=== PATIENT | male | born 1990 | race Caucasian/White ===

== ENCOUNTER → 2018-11-10 11:07 | Outpatient (CLI) | payer OTHER, SELFPAY ==
[2018-11-10 12:16] LABS: Absolute Lymphocyte Count 1.33 X10^3/ul (0.83-4.51); Absolute Neutrophil Count 5.7 X10^3/uL (2.0-7.7); Basophil# 0.01 X10^3/uL; Basophil% 0.1 % (0-1); Eosinophil# 0.05 X10^3/uL; Eosinophils% 0.6 % (0-5); Hematocrit 42.3 % (40-54); Lymphocyte # 1.33 X10^3/ul (4.0); Mean Corp Hgb Conc 30.7 g/gl (32-36); Mean Corpuscular Hgb 24.3 pg (27.0-32.0); Mean Corpuscular Volume 79.2 fL (80-94); Mean Platelet Vol. 8.9 fl (6.2-12.0); Monocyte# 0.72 X10^3/uL; Monocyte% 9.2 % (0-10); Platelet Count 291 K/mm3 (150-450); RBC Distribution Width CV 14.6 % (11.6-14.6); RBC Distribution Width SD 42.3 fl (35.1-43.9); Red Blood Count 5.34 M/mm3 (4.6-6.2); White Blood Count 7.8 K/mm3 (4.4-11.0)
[2018-11-10 12:18] LABS: POSITIVE COUNT NO; POSITIVE DIFFERENTIAL NO; POSITIVE MORPHOLOGY NO
[2018-11-10 12:43] LABS: ALB/GLOB Ratio 0.7 RATIO (0.9-2.4); AST(SGOT) 11 U/L (15-37); Alanine Aminotransfer ALT/SGPT 19 U/L (16-61); Albumin, Serum 3.3 g/dL (3.2-5.0); Alkaline Phosphatase 74 U/L (45-117); Anion Gap 8 (5-15); BUN 11 mg/dL (7-18); BUN/Creat Ratio 12.1 RATIO (10-20); Calcium,Total 8.8 mg/dL (8.5-10.1); Chloride 102 mmol/L (98-107); Creatinine, Serum 0.91 mg/dL (0.70-1.30); EST Glomerular Filtration Rate 105 mL/min (>60); Est Glom Filt Rate - Afr Amer 127 mL/min (>60); Globulin 4.5 g/dL (2.2-4.2); Glucose 108 mg/dL (74-106); Potassium 3.5 mmol/L (3.5-5.1); Protein, Total 7.8 g/dL (6.4-8.2); Sodium Level 141 mmol/L (136-145)
== END ==
PROVIDERS: Family Provider Family Medicine; PCP Family Medicine; Referring Provider Family Medicine; Visit Provider Family Medicine
DX: R10.9 Unspecified abdominal pain (principal)
CPT/HCPCS: 36415; 80053; 85025

== ENCOUNTER → 2018-11-17 11:52 | Outpatient (CLI) | payer SELFPAY ==
--- NOTE | 2018-11-17 11:55 | CT_ITS ---
STUDY: CT ABDOMEN AND PELVIS WITH CONTRAST REASON FOR EXAM: Male, 28 years old. 9 day history of right lower quadrant pain and fatigue. History of Crohn's disease. Fever/chills. RADIATION DOSAGE (If Supplied By Facility): CTDIvol = ( 8.76 ) mGy, DLP = ( 531.02 ) mGycm TECHNIQUE: Transaxial images were obtained from the dome of the diaphragm to the symphysis pubis with oral contrast. Isovue 300 100 IV/Oral was administered. Sagittal and coronal images were reconstructed. Individualized dose optimization techniques were used for this CT. COMPARISON: None. FINDINGS: The visualized lung bases are unremarkable. The visualized portions of the heart are within normal limits. Normal liver. Normal gallbladder and extrahepatic biliary system. Normal spleen. Normal pancreas. Normal bilateral adrenal glands. Normal right kidney. Normal left kidney. There is a small hiatal hernia. There is a 10 cm segment of the distal ileum and terminal ileum with diffuse circumferential wall thickening and narrowing with increased markings in the surrounding mesenteric fat. This is in keeping with recurrent Crohn's disease. There is also evidence of multiple small mesenteric lymph nodes at that site in keeping with mesenteric lymphadenitis. Normal colon. The appendix is visualized and appears normal. Normal abdominal aorta. Normal inferior vena cava. Normal retroperitoneum. Normal urinary bladder. Normal abdominal wall. Normal osseous structures. CT/Abdomen/Pelvis WITH Contrast IMPRESSION: 10 cm segment of the diffuse circumferential wall thickening of the distal and terminal ileum with surrounding mesenteric adenitis and bowel wall thickening suggestive of recurrent Crohn's disease. Fecal material is seen in the colon. Electronically Signed: Uri Pierson, at 14:43 EDT , Service support ,
== END ==
PROVIDERS: Family Provider Family Medicine; PCP Family Medicine; Referring Provider Family Medicine; Visit Provider Family Medicine
DX: R10.31 Right lower quadrant pain (principal)
CPT/HCPCS: 74177; Q9967

== ENCOUNTER → 2018-11-19 13:42 | Outpatient (CLI) | payer OTHER, SELFPAY | PROVIDERS: Family Provider Family Medicine; PCP Family Medicine; Referring Provider Internal Medicine Gastroenterology; Visit Provider Internal Medicine Gastroenterology | DX: K50.80 Crohn's disease of both small and large intestine without complications (principal) | CPT/HCPCS: 36415 ==

== ENCOUNTER → 2018-12-09 12:13 | Outpatient (CLI) | payer OTHER, SELFPAY ==
[2018-12-09 13:26] LABS: Erythrocyte Sedimentation Rate 54 mm/hr (0-15)
[2018-12-09 13:30] LABS: Absolute Lymphocyte Count 1.01 X10^3/ul (0.83-4.51); Absolute Neutrophil Count 8.3 X10^3/uL (2.0-7.7); Basophil# 0.01 X10^3/uL; Basophil% 0.1 % (0-1); Eosinophil# 0.02 X10^3/uL; Eosinophils% 0.2 % (0-5); Hematocrit 41.1 % (40-54); Hemoglobin 12.9 g/dl (13.0-16.5); Lymphocyte # 1.01 X10^3/ul (4.0); Lymphocyte % 9.9 % (19-41); Mean Corp Hgb Conc 31.4 g/gl (32-36); Mean Corpuscular Hgb 23.6 pg (27.0-32.0); Mean Corpuscular Volume 75.3 fL (80-94); Mean Platelet Vol. 9.6 fl (6.2-12.0); Monocyte# 0.85 X10^3/uL; Monocyte% 8.4 % (0-10); Neutrophil # 8.25 X10^3/uL (2.7-7.7); Neutrophil % 81.2 % (47-70); Platelet Count 279 K/mm3 (150-450); RBC Distribution Width CV 14.6 % (11.6-14.6); RBC Distribution Width SD 39.6 fl (35.1-43.9); Red Blood Count 5.46 M/mm3 (4.6-6.2); White Blood Count 10.2 K/mm3 (4.4-11.0)
[2018-12-09 13:31] LABS: POSITIVE COUNT NO; POSITIVE DIFFERENTIAL NO; POSITIVE MORPHOLOGY NO
== END ==
PROVIDERS: Family Provider Family Medicine; PCP Family Medicine; Referring Provider Internal Medicine Gastroenterology; Visit Provider Internal Medicine Gastroenterology
DX: K50.90 Crohn's disease, unspecified, without complications (principal)
CPT/HCPCS: 36415; 85025; 85652; 86140

== ENCOUNTER → 2018-12-17 | Outpatient (CLI) | payer OTHER, SELFPAY ==
[2018-12-17 08:07] VITALS: BP 119/71; PULSE 86; RESP 16; TEMP 36.6; O2SAT 97; BMI 20.9
== END | disposition home or self-care (01) ==
LOC: MEDOUTP 07:55
PROVIDERS: Family Provider Family Medicine; PCP Family Medicine; Referring Provider Internal Medicine Gastroenterology; Visit Provider Internal Medicine Gastroenterology
DX: K50.90 Crohn's disease, unspecified, without complications (principal)
CPT/HCPCS: 96365; J7050; A4216; J3358

== ENCOUNTER → 2019-01-19 07:34 | Outpatient (CLI) | payer OTHER, SELFPAY ==
[2018-12-17 08:07] VITALS: BMI 20.9
[2019-01-19 10:20] LABS: Hematocrit 40.2 % (40-54); Hemoglobin 12.5 g/dl (13.0-16.5); Mean Corp Hgb Conc 31.1 g/gl (32-36); Mean Corpuscular Hgb 23.8 pg (27.0-32.0); Mean Corpuscular Volume 76.6 fL (80-94); Mean Platelet Vol. 8.8 fl (6.2-12.0); Platelet Count 381 K/mm3 (150-450); RBC Distribution Width CV 15.8 % (11.6-14.6); RBC Distribution Width SD 43.7 fl (35.1-43.9); Red Blood Count 5.25 M/mm3 (4.6-6.2); White Blood Count 10.1 K/mm3 (4.4-11.0)
[2019-01-19 10:25] LABS: Scan Indicated on CBC? Y/N NO
[2019-01-19 10:45] LABS: ALB/GLOB Ratio 0.8 RATIO (0.9-2.4); AST(SGOT) 13 U/L (15-37); Alanine Aminotransfer ALT/SGPT 33 U/L (16-61); Albumin, Serum 2.9 g/dL (3.2-5.0); Alkaline Phosphatase 61 U/L (45-117); Anion Gap 5 (5-15); BUN 9 mg/dL (7-18); BUN/Creat Ratio 8.8 RATIO (10-20); Calcium,Total 8.6 mg/dL (8.5-10.1); Chloride 104 mmol/L (98-107); Creatinine, Serum 1.02 mg/dL (0.70-1.30); EST Glomerular Filtration Rate 92 mL/min (>60); Est Glom Filt Rate - Afr Amer 112 mL/min (>60); Globulin 3.8 g/dL (2.2-4.2); Glucose 131 mg/dL (74-106); Potassium 3.2 mmol/L (3.5-5.1); Protein, Total 6.7 g/dL (6.4-8.2); Sodium Level 140 mmol/L (136-145)
== END ==
PROVIDERS: Family Provider Family Medicine; PCP Family Medicine; Referring Provider Internal Medicine Gastroenterology; Visit Provider Internal Medicine Gastroenterology
DX: K50.90 Crohn's disease, unspecified, without complications (principal)
CPT/HCPCS: 36415; 80053; 85027; 86140

== ENCOUNTER → 2019-01-21 | Outpatient (CLI) | payer OTHER, SELFPAY ==
[2018-12-17 08:07] VITALS: BMI 20.9
--- NOTE | 2019-01-21 14:48 | CT_ITS ---
STUDY: CT ABDOMEN AND PELVIS WITH CONTRAST REASON FOR EXAM: Male, 28 years old. Two-week history of right lower quadrant pain. History of Crohn's disease. RADIATION DOSAGE (If Supplied By Facility): CTDIvol = ( 14.35 ) mGy, DLP = ( 451.47 ) mGycm TECHNIQUE: Transaxial images were obtained from the dome of the diaphragm to the symphysis pubis with oral contrast. 100mL IV/Oral Isovue 300 was administered. Sagittal and coronal images were reconstructed. Individualized dose optimization techniques were used for this CT. COMPARISON: Comparison is made with prior examination dated November 17, 2018. FINDINGS: The visualized lung bases are unremarkable. The visualized portions of the heart are within normal limits. Normal liver. Normal gallbladder and extrahepatic biliary system. Normal spleen. Normal pancreas. Normal bilateral adrenal glands. Normal right kidney. Normal left kidney. There is a small hiatal hernia. Once again, there is an approximately 10 cm segment of distal ileum and terminal ileum with diffuse circumferential wall thickening and narrowing of the lumen. Increased markings are seen in the surrounding peritoneal fat as well as mesenteric adenitis. At this time however, there is evidence of a 3.2 cm x 4.3 cm cystic structure along the inferior anterior aspect of the inflammatory mass. This may represent either superimposed appendicitis versus progressive Crohn's disease. Normal colon. The appendix is visualized and appears normal. Normal abdominal aorta. Normal inferior vena cava. Normal retroperitoneum. Normal urinary bladder. Normal abdominal wall. Normal osseous structures. CT/Abdomen/Pelvis WITH Contrast IMPRESSION: Progressive thickening and cystic changes in the right lower quadrant at this level of the terminal ileum and distal ileum as well as the cecum and probable appendicitis. The results were communicated to the referring physician. Electronically Signed: Uri Pierson, at 8:07 EDT , Service support ,
== END | disposition home or self-care (01) ==
LOC: CT 14:46
PROVIDERS: Family Provider Family Medicine; PCP Family Medicine; Referring Provider Internal Medicine Gastroenterology; Visit Provider Internal Medicine Gastroenterology
DX: K50.90 Crohn's disease, unspecified, without complications (principal); R10.31 Right lower quadrant pain
CPT/HCPCS: 74177; Q9967; A4216

== ENCOUNTER 2019-01-24 09:58 | Emergency (ER) | payer OTHER, SELFPAY ==
[2018-12-17 08:07] VITALS: BMI 20.9
[2019-01-24 10:00] VITALS: BP 152/87; PULSE 111; RESP 16; TEMP 36.7; O2SAT 98; BMI 20.3
[2019-01-24 10:28] LABS: Absolute Lymphocyte Count 0.72 X10^3/ul (0.83-4.51); Absolute Neutrophil Count 7.2 X10^3/uL (2.0-7.7); Hematocrit 39.4 % (40-54); Hemoglobin 12.6 g/dl (13.0-16.5); Lymphocyte # 0.72 X10^3/ul (4.0); Lymphocyte % 8.1 % (19-41); Mean Corpuscular Hgb 24.5 pg (27.0-32.0); Mean Corpuscular Volume 76.7 fL (80-94); Mean Platelet Vol. 8.1 fl (6.2-12.0); Monocyte# 0.89 X10^3/uL; Monocyte% 10.1 % (0-10); Neutrophil # 7.23 X10^3/uL (2.7-7.7); Neutrophil % 81.7 % (47-70); Platelet Count 280 K/mm3 (150-450); RBC Distribution Width CV 15.6 % (11.6-14.6); RBC Distribution Width SD 43.6 fl (35.1-43.9); Red Blood Count 5.14 M/mm3 (4.6-6.2); White Blood Count 8.9 K/mm3 (4.4-11.0)
[2019-01-24 10:30] LABS: POSITIVE COUNT NO; POSITIVE DIFFERENTIAL NO; POSITIVE MORPHOLOGY NO
[2019-01-24 10:38] LABS: Anion Gap 4 (5-15); BUN 8 mg/dL (7-18); BUN/Creat Ratio 8.2 RATIO (10-20); Calcium,Total 8.5 mg/dL (8.5-10.1); Chloride 101 mmol/L (98-107); Creatinine, Serum 0.98 mg/dL (0.70-1.30); EST Glomerular Filtration Rate 97 mL/min (>60); Est Glom Filt Rate - Afr Amer 117 mL/min (>60); Glucose 119 mg/dL (74-106); Potassium 3.5 mmol/L (3.5-5.1); Sodium Level 139 mmol/L (136-145)
--- NOTE | 2019-01-24 10:52 | ED.VIS.GI ---
History of Present Illness Chief Complaint: Abd Pain Informant: Patient - Abdominal Pain/Flank Pain Onset: Month(s) - 2.5 Context: Gradual Onset Timing: Intermittent - constant since yesterday PM Quality: Aching Current Severity: Moderate Maximum Severity: Moderate Worsened by: Movement Relieved by: - - prednisone when he took it a month or so ago, but not now - Nausea/Vomiting/Emesis GI Symptom: - - anorexia. Negative for: Nausea, Vomiting - Diarrhea/Melena/Hematochezia GI Symptom: Diarrhea - 3-5x/day is normal for him with his Crohn's; has been intermittent, 10x yesterday, no blood. for the most part in past several months, having fairly normal diarrhea for him, without blood. 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 After starting that, 3 days ago, he had a CT scan that showed inflammation around the cecum and terminal ileum and also possible appendicitis. He has an appointment with a colorectal specialist at [facility] in 4 days, has not seen any surgeons yet. He states that pain is not necessarily worse today than it was 3 days ago, but it had been intermittent this past week and now it is constant. It is significant to the point where he really does not want to get out of bed, being in more of the position seems to help a little. Pain has not been migratory or changing position/location or radiating. It is in his right lower quadrant. He has never had abdominal surgery. - Past Medical History (1) Crohn's disease Status: Chronic Past Medical History - Allergies and Home Meds Allergies/Adverse Reactions: Allergies No Known Allergies Allergy (Verified 12/17/18 08:12) Primary Care Physician: Fausto Ballesteros MD [Primary Care Provider] - Lives: Spouse/ Significant Other Smoking Status: Never smoker Review of Systems General: Denies: Chills, Fever, Sweats Eyes: Denies: Visual changes - bilaterally, Diplopia ENT: Denies: Rhinorrhea, Sore throat Cardiovascular: Denies: Chest pain, Palpitations Respiratory: Denies: Dyspnea, Cough, Dyspnea on exertion Gastrointestinal: Reports: Abdominal pain, Diarrhea. Denies: Nausea, Vomiting, Melena, Hematochezia Genitourinary: Denies: Dysuria, Hematuria, Frequency Musculoskeletal: Denies: Neck pain, Back pain, Extremity Pain Skin: Denies: Rash, Wounds Neurological: Denies: Headache, Weakness, Numbness Physical Exam Vital Signs/Narrative: Vital Signs Temp Pulse Resp BP Pulse Ox 01/24/19 10:00 98.1 F 111 H 16 152/87 H 98 Inital Vital Signs reviewed: Yes General: Well nourished, Well developed, No Acute Distress Head: Normocephalic, Atraumatic Eyes: Perrl, EOMI ENT: Moist mucous membranes, No rhinorrhea Neck: Supple, Nontender Cardiovascular: Regular rate, Regular rhythm, No murmurs Respiratory: No distress, CTA bilaterally, Chest nontender Abdomen: Soft, Nondistended, Normal bowel sounds, Tender - throughout RLQ including McBurney's pt, but more tender just distal, Guarding - some voluntary, RLQ, Psoas sign. Negative for: Rebound tenderness, Obturator sign, Rovsig's sign, Ibarra's sign Back: Nontender, Normal Inspection. Negative for: CVA tenderness Extremities: Nontender, No edema Skin: Normal color, No rash, No Trauma Neurological: Alert, Oriented x3, Cranial nerves II-XII grossly intact, Normal Strength, Normal Sensation Psychological: Normal affect, Normal Mood Diagnostic/Tx/Re-eval Laboratory Tests 01/24/19 01/24/19 Range/Units 10:16 10:16 WBC 8.9 (4.4-11.0) K/mm3 RBC 5.14 (4.6-6.2) M/mm3 Hgb 12.6 L (13.0-16.5) g/dl Hct 39.4 L (40-54) % MCV 76.7 L (80-94) fL MCH 24.5 L (27.0-32.0) pg MCHC 32.0 (32-36) g/gl RDW 15.6 H (11.6-14.6) % RDW Differential 43.6 (35.1-43.9) fl Plt Count 280 (150-450) K/mm3 MPV 8.1 (6.2-12.0) fl Immature Gran % (Auto) 0.100 (0.0-0.9) % Neut % (Auto) 81.7 H (47-70) % Lymph % (Auto) 8.1 L (19-41) % [place] % (Auto) 10.1 H (0-10) % Eos % (Auto) 0.0 (0-5) % Baso % (Auto) 0.0 (0-1) % Absolute Neuts (auto) 7.2 (2.0-7.7) X10^3/uL Absolute Lymphs (auto) 0.72 L (0.83-4.51) X10^3/ul Total Counted Not Reportable Sodium 139 (136-145) mmol/L Potassium 3.5 (3.5-5.1) mmol/L Chloride 101 (98-107) mmol/L Carbon Dioxide 34.0 H (21.0-32.0) mmol/L Anion Gap 4 L (5-15) BUN 8 (7-18) mg/dL Creatinine 0.98 (0.70-1.30) mg/dL Estim Creat Clear Calc 108.00 ml/min Est GFR (MDRD) Af Amer 117 (>60) mL/min Est GFR (MDRD) Non-Af 97 (>60) mL/min BUN/Creatinine Ratio 8.2 L (10-20) RATIO Glucose 119 H (74-106) mg/dL Calcium 8.5 (8.5-10.1) mg/dL - Medical Decision Making Labs are unremarkable, his white blood count is actually gone down some. He has a CT from 3 days ago that is ambiguous. The results summary says that he has a probable appendicitis, but yet in the text of the resolve it says that the appendix is visualized and appears normal. It is Friday and the radiologist is not available for discussion, this was done as an outpatient. He also has significant inflammatory changes consistent with progressive Crohn's disease in comparison with his scan from November. I discussed with our surgeon on-call Dr. Ho, who looked at the imaging and states that it looks like an early fistula with abscess formation and Crohn's, without necessarily involving the appendix. He recommends transfer to specialist tertiary care facility that deals with Crohn's surgically as we have not yet. The patient prefers [facility], accepted there by colorectal Dr. Gordon. Zosyn and morphine given, pt remains stable. ED Disposition - Plan for ED Patient: Disposition: [facility] - Main Diagnosis: Crohn's disease of intestine with abscess Referrals: Fausto Ballesteros MD [Primary Care Provider] -
--- NOTE | 2019-01-24 10:56 | ED.DCSUM_ITS ---
History of Present Illness Chief Complaint: Abd Pain Informant: Patient - Abdominal Pain/Flank Pain Onset: Month(s) - 2.5 Context: Gradual Onset Timing: Intermittent - constant since yesterday PM Quality: Aching Current Severity: Moderate Maximum Severity: Moderate Worsened by: Movement Relieved by: - - prednisone when he took it a month or so ago, but not now - Nausea/Vomiting/Emesis GI Symptom: - - anorexia. Negative for: Nausea, Vomiting - Diarrhea/Melena/Hematochezia GI Symptom: Diarrhea - 3-5x/day is normal for him with his Crohn's; has been intermittent, 10x yesterday, no blood. for the most part in past several months, having fairly normal diarrhea for him, without blood. 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 After starting that, 3 days ago, he had a CT scan that showed inflammation around the cecum and terminal ileum and also possible appendicitis. He has an appointment with a colorectal specialist at [facility] in 4 days, has not seen any surgeons yet. He states that pain is not necessarily worse today than it was 3 days ago, but it had been intermittent this past week and now it is constant. It is significant to the point where he really does not want to get out of bed, being in more of the position seems to help a little. Pain has not been migratory or changing position/location or radiating. It is in his right lower quadrant. He has never had abdominal surgery. - Past Medical History (1) Crohn's disease Status: Chronic Past Medical History - Allergies and Home Meds Allergies/Adverse Reactions: Allergies No Known Allergies Allergy (Verified 12/17/18 08:12) Primary Care Physician: Fausto Ballesteros MD [Primary Care Provider] - Lives: Spouse/ Significant Other Smoking Status: Never smoker Review of Systems General: Denies: Chills, Fever, Sweats Eyes: Denies: Visual changes - bilaterally, Diplopia ENT: Denies: Rhinorrhea, Sore throat Cardiovascular: Denies: Chest pain, Palpitations Respiratory: Denies: Dyspnea, Cough, Dyspnea on exertion Gastrointestinal: Reports: Abdominal pain, Diarrhea. Denies: Nausea, Vomiting, Melena, Hematochezia Genitourinary: Denies: Dysuria, Hematuria, Frequency Musculoskeletal: Denies: Neck pain, Back pain, Extremity Pain Skin: Denies: Rash, Wounds Neurological: Denies: Headache, Weakness, Numbness Physical Exam Vital Signs/Narrative: Vital Signs Temp Pulse Resp BP Pulse Ox 01/24/19 10:00 98.1 F 111 H 16 152/87 H 98 Inital Vital Signs reviewed: Yes General: Well nourished, Well developed, No Acute Distress Head: Normocephalic, Atraumatic Eyes: Perrl, EOMI ENT: Moist mucous membranes, No rhinorrhea Neck: Supple, Nontender Cardiovascular: Regular rate, Regular rhythm, No murmurs Respiratory: No distress, CTA bilaterally, Chest nontender Abdomen: Soft, Nondistended, Normal bowel sounds, Tender - throughout RLQ including McBurney's pt, but more tender just distal, Guarding - some voluntary, RLQ, Psoas sign. Negative for: Rebound tenderness, Obturator sign, Rovsig's sign, Ibarra's sign Back: Nontender, Normal Inspection. Negative for: CVA tenderness Extremities: Nontender, No edema Skin: Normal color, No rash, No Trauma Neurological: Alert, Oriented x3, Cranial nerves II-XII grossly intact, Normal Strength, Normal Sensation Psychological: Normal affect, Normal Mood Diagnostic/Tx/Re-eval Laboratory Tests 01/24/19 01/24/19 Range/Units 10:16 10:16 WBC 8.9 (4.4-11.0) K/mm3 RBC 5.14 (4.6-6.2) M/mm3 Hgb 12.6 L (13.0-16.5) g/dl Hct 39.4 L (40-54) % MCV 76.7 L (80-94) fL MCH 24.5 L (27.0-32.0) pg MCHC 32.0 (32-36) g/gl RDW 15.6 H (11.6-14.6) % RDW Differential 43.6 (35.1-43.9) fl Plt Count 280 (150-450) K/mm3 MPV 8.1 (6.2-12.0) fl Immature Gran % (Auto) 0.100 (0.0-0.9) % Neut % (Auto) 81.7 H (47-70) % Lymph % (Auto) 8.1 L (19-41) % [place] % (Auto) 10.1 H (0-10) % Eos % (Auto) 0.0 (0-5) % Baso % (Auto) 0.0 (0-1) % Absolute Neuts (auto) 7.2 (2.0-7.7) X10^3/uL Absolute Lymphs (auto) 0.72 L (0.83-4.51) X10^3/ul Total Counted Not Reportable Sodium 139 (136-145) mmol/L Potassium 3.5 (3.5-5.1) mmol/L Chloride 101 (98-107) mmol/L Carbon Dioxide 34.0 H (21.0-32.0) mmol/L Anion Gap 4 L (5-15) BUN 8 (7-18) mg/dL Creatinine 0.98 (0.70-1.30) mg/dL Estim Creat Clear Calc 108.00 ml/min Est GFR (MDRD) Af Amer 117 (>60) mL/min Est GFR (MDRD) Non-Af 97 (>60) mL/min BUN/Creatinine Ratio 8.2 L (10-20) RATIO Glucose 119 H (74-106) mg/dL Calcium 8.5 (8.5-10.1) mg/dL - Medical Decision Making Labs are unremarkable, his white blood count is actually gone down some. He has a CT from 3 days ago that is ambiguous. The results summary says that he has a probable appendicitis, but yet in the text of the resolve it says that the appendix is visualized and appears normal. It is Friday and the radiologist is not available for discussion, this was done as an outpatient. He also has significant inflammatory changes consistent with progressive Crohn's disease in comparison with his scan from November. I discussed with our surgeon on-call Dr. Ho, who looked at the imaging and states that it looks like an early fistula with abscess formation and Crohn's, without necessarily involving the appendix. He recommends transfer to specialist tertiary care facility that deals with Crohn's surgically as we have not yet. The patient prefers [facility], accepted there by colorectal Dr. Gordon. Zosyn and morphine given, pt remains stable. ED Disposition - Plan for ED Patient: Disposition: [facility] - Main Diagnosis: Crohn's disease of intestine with abscess Referrals: Fausto Ballesteros MD [Primary Care Provider] -
--- NOTE | 2019-01-24 11:23 | NURSING ---
[phone] HALLMAN [phone] HALLMAN
[2019-01-24] MEDS: Morphine 4 MG/ML Syringe IV (11:26)
--- NOTE | 2019-01-24 11:53 | NURSING ---
PAGED DR HALLMAN
[2019-01-24 12:06] VITALS: BP 124/73; PULSE 91; RESP 18; O2SAT 96
--- NOTE | 2019-01-24 13:07 | NURSING ---
DR NEAL ALVA
--- NOTE | 2019-01-24 13:43 | NURSING ---
CALLED [facility] FOR TRANSFER
--- NOTE | 2019-01-24 14:10 | NURSING ---
DR VORA FOR DR DASH
--- NOTE | 2019-01-24 14:19 | NURSING ---
PATIENT ACCEPTED AT [facility]
[2019-01-24 15:16] VITALS: BP 121/71; PULSE 81; RESP 16; O2SAT 98
== END 2019-01-24 15:25 | disposition short-term general hospital (02) ==
PROVIDERS: Emergency Provider Emergency Medicine; Family Provider Family Medicine; PCP Family Medicine
DX: K50.914 Crohn's disease, unspecified, with abscess (principal); Z79.52 Long term (current) use of systemic steroids
CPT/HCPCS: 80048; 85025; 96365; 96375; 99284; J7050; A4216

== ENCOUNTER → 2019-06-23 | Outpatient (CLI) | payer OTHER, SELFPAY ==
[2019-06-23 14:28] LABS: Hematocrit 42.2 % (40-54); Hemoglobin 12.6 g/dL (13.0-16.5); Mean Corp Hgb Conc 29.9 g/dL (32-36); Mean Corpuscular Hgb 22.5 pg (27.0-32.0); Mean Corpuscular Volume 75.5 fL (80-94); Mean Platelet Vol. 9.5 fl (6.2-12.0); Platelet Count 277 K/mm3 (150-450); RBC Distribution Width CV 17.2 % (11.6-14.6); RBC Distribution Width SD 46.5 fl (35.1-43.9); Red Blood Count 5.59 M/mm3 (4.6-6.2); White Blood Count 4.3 K/mm3 (4.4-11.0)
[2019-06-23 14:56] LABS: CRP < 2.90 mg/L (0.0-3.0)
== END | disposition home or self-care (01) ==
LOC: MTLAB 12:22
PROVIDERS: Family Provider Family Medicine; PCP Family Medicine; Referring Provider Internal Medicine Gastroenterology; Visit Provider Internal Medicine Gastroenterology
DX: K50.90 Crohn's disease, unspecified, without complications (principal)
CPT/HCPCS: 36415; 85027; 86140

== ENCOUNTER → 2020-06-22 | Outpatient (CLI) | payer OTHER, SELFPAY | END | disposition home or self-care (01) | LOC: MTDU 17:31 | PROVIDERS: PCP Family Medicine; Referring Provider Family Medicine; Visit Provider Family Medicine | DX: Z03.818 Encounter for observation for suspected exposure to other biological agents ruled out (principal) | CPT/HCPCS: 87635; C9803; U0003 ==

== ENCOUNTER → 2020-07-04 | Outpatient (CLI) | payer OTHER, SELFPAY ==
--- NOTE | 2020-07-04 08:10 | RAD_ITS ---
STUDY: X-RAY - ESOPHAGUS (BARIUM SWALLOW) WITH FLUOROSCOPY REASON FOR EXAM: Male, 29 years old. pt. has been experiencing solids/meat mostly getting stuck upper to mid esoph, hx of Crohn''s TECHNIQUE: 19 view(s) of the esophagus were obtained following swallowing of barium. FLUOROSCOPY TIME (if supplied): (0:30) minutes/seconds COMPARISON: None. FINDINGS: There is no demonstrated esophageal foreign body. There is no demonstrated stricture or mucosal abnormality. Normal gastroesophageal junction, without a demonstrated hiatal hernia. The patient ingested a 12 mm tablet of barium without any difficulty. Normal visualized aortic arch and descending thoracic aorta. Normal visualized pulmonary parenchyma. Normal visualized osseous structures of the thorax. RAD/Esophagus Dual Contrast IMPRESSION: Normal plain film x-ray examination (barium swallow) of the esophagus. Electronically Signed: Uri Pierson, at 8:51 EDT , Service support ,
== END | disposition home or self-care (01) ==
LOC: RAD 08:03
PROVIDERS: PCP Family Medicine; Referring Provider Internal Medicine Gastroenterology; Visit Provider Internal Medicine Gastroenterology
DX: R13.10 Dysphagia, unspecified (principal)
CPT/HCPCS: 74221

== ENCOUNTER → 2020-08-15 | Outpatient (CLI) | payer OTHER, SELFPAY | END | disposition home or self-care (01) | LOC: LABSPEC 17:47 | PROVIDERS: PCP Family Medicine; Referring Provider Internal Medicine Gastroenterology; Visit Provider Internal Medicine Gastroenterology | DX: Z11.59 Encounter for screening for other viral diseases (principal) | CPT/HCPCS: 87635; C9803; U0003 ==

== ENCOUNTER → 2020-08-21 | Outpatient (CLI) | payer OTHER, SELFPAY ==
--- NOTE | 2020-08-21 | EGD_PTH ---
PATIENT: JOHNATHAN BENITEZ III [facility]: [facility] U#:[id number] AGE/SX: 29/M ROOM: RE08/21/[address]: Dr. Erasmo Peterson MD : 1990 BED: DIS: 08/21/2020 SPEC #: [id number] RECD: 08/21/20 15:04 STATUS: NANCY DENISE #: [id number] SHARMAINE: 08/21/20 00:[address]: Erasmo Peterson DEPT: SURGICAL PATHOLOGY RECD BY: Vahid Sweet ENTERED: 08/22/20 07:49 SP TYPE: EGD BIOPSY HENRY DR: Dr. Hi Ballesteros MD [facility] Tissues: Esophagus, NOS Procedures: Surgery Specimen Level IV HEADER OPERATION: EGD with biopsy PRE-OP DIAGNOSIS: Dysphagia TISSUE SUBMITTED: Esophagus biopsy, rule out EE MICROSCOPIC DIAGNOSIS Esophagus, biopsy: Consistent with eosinophilic esophagitis. AM:corrine 08/23/20 MICROSCOPIC DESCRIPTION Slides are reviewed. GROSS DESCRIPTION Received in fixative is one container labeled with the patient's name and designated esophagus biopsy. The specimen consists of multiple irregular fragments of light [place] soft tissue that in aggregate measure 0.5 x 0.2 x 0.1 cm. The specimen is totally submitted in one cassette. / SJ:corrine 08/22/20 TC:3 CPT: 01148
== END | disposition home or self-care (01) ==
LOC: LABSPEC 15:42
PROVIDERS: PCP Family Medicine; Visit Provider Internal Medicine Gastroenterology
DX: R13.10 Dysphagia, unspecified (principal)
CPT/HCPCS: 88305

== ENCOUNTER → 2020-12-26 16:49 | Outpatient (CLI) | payer OTHER, SELFPAY | PROVIDERS: PCP Family Medicine; Referring Provider Internal Medicine Gastroenterology; Visit Provider Internal Medicine Gastroenterology | DX: K50.90 Crohn's disease, unspecified, without complications (principal) | CPT/HCPCS: 36415 ==

== ENCOUNTER → 2020-12-28 12:02 | Outpatient (CLI) | payer OTHER, SELFPAY ==
[2020-12-28 15:19] LABS: Absolute Lymphocyte Count 1.57 X10^3/uL (0.83-4.51); Absolute Neutrophil Count 3.4 X10^3/uL (2.0-7.7); Basophil# 0.04 X10^3/uL; Basophil% 0.7 % (0-1); Eosinophil# 0.17 X10^3/uL; Eosinophils% 2.9 % (0-5); Hemoglobin 15.1 g/dL (13.0-16.5); Lymphocyte # 1.57 X10^3/ul (0.83-4.51); Lymphocyte % 26.9 % (19-41); Mean Corp Hgb Conc 31.5 g/dL (32-36); Mean Corpuscular Hgb 26.1 pg (27.0-32.0); Mean Platelet Vol. 10.6 fl (6.2-12.0); Monocyte# 0.61 X10^3/uL; Monocyte% 10.4 % (0-10); NRBC Flagged by Analyzer 0 % (0-5); Neutrophil # 3.43 X10^3/uL (2.7-7.7); Neutrophil % 58.8 % (47-70); Platelet Count 246 K/mm3 (150-450); RBC Distribution Width CV 13.4 % (11.6-14.6); Red Blood Count 5.78 M/mm3 (4.6-6.2); White Blood Count 5.8 K/mm3 (4.4-11.0)
[2020-12-28 15:37] LABS: Vitamin B12 290 pg/mL (211-911); Vitamin D,25 Hydroxy 24.9 ng/mL
[2020-12-28 15:48] LABS: Erythrocyte Sedimentation Rate 16 mm/hr (0-20)
[2020-12-28 15:56] LABS: AST(SGOT) 16 U/L (15-37); Alanine Aminotransfer ALT/SGPT 23 U/L (16-61); Albumin, Serum 3.9 g/dL (3.2-5.0); Alkaline Phosphatase 84 U/L (45-117); Anion Gap 4 (5-15); BUN 10 mg/dL (7-18); BUN/Creat Ratio 10.9 RATIO (10-20); Calcium,Total 9.1 mg/dL (8.5-10.1); Chloride 103 mmol/L (98-107); Creatinine, Serum 0.92 mg/dL (0.70-1.30); EST Glomerular Filtration Rate 103 mL/min (>60); Est Glom Filt Rate - Afr Amer 124 mL/min (>60); Globulin 3.9 g/dL (2.2-4.2); Glucose 81 mg/dL (74-106); Iron 52 ug/dL (65-175); Potassium 3.8 mmol/L (3.5-5.1); Protein, Total 7.8 g/dL (6.4-8.2); Sodium Level 138 mmol/L (136-145); Thyroid Stim Hormone (TSH) 2.56 uIU/mL (0.358-3.74)
== END ==
PROVIDERS: PCP Family Medicine; Referring Provider Family Medicine; Visit Provider Family Medicine
DX: K50.90 Crohn's disease, unspecified, without complications (principal); R53.83 Other fatigue
CPT/HCPCS: 36415; 80053; 82306; 82607; 83540; 84443; 85025; 85652

== ENCOUNTER → 2021-03-14 08:58 | Outpatient (CLI) | payer OTHER, SELFPAY ==
--- NOTE | 2021-03-14 09:02 | RAD_ITS ---
STUDY: X-RAY - LEFT RADIUS AND ULNA REASON FOR EXAM: Male, 30 years old. PAIN IN LEFT WRIST TECHNIQUE: 2 view(s) of the forearm. COMPARISON: None. FINDINGS: There is no demonstrated soft tissue swelling. Normal visualized radius. Normal visualized ulna. RAD/Forearm 2 Views IMPRESSION: Normal x-ray examination of the radius and ulna. Electronically Signed: Uri Pierson MD at 11:07 EDT , Service support ,
== END ==
PROVIDERS: PCP Family Medicine; Referring Provider Family Medicine; Visit Provider Family Medicine
DX: M25.532 Pain in left wrist (principal)
CPT/HCPCS: 73090

== ENCOUNTER → 2021-03-21 15:22 | Outpatient (CLI) | payer OTHER, SELFPAY ==
[2021-03-21 17:52] LABS: Erythrocyte Sedimentation Rate 12 mm/hr (0-20); Hematocrit 45.3 % (40-54); Hemoglobin 14.7 g/dL (13.0-16.5); Mean Corp Hgb Conc 32.5 g/dL (32-36); Mean Corpuscular Hgb 27.2 pg (27.0-32.0); Mean Corpuscular Volume 83.7 fL (80-94); Mean Platelet Vol. 9.5 fl (6.2-12.0); Platelet Count 279 K/mm3 (150-450); RBC Distribution Width CV 12.9 % (11.6-14.6); RBC Distribution Width SD 39.6 fl (35.1-43.9); Red Blood Count 5.41 M/mm3 (4.6-6.2); White Blood Count 5.9 K/mm3 (4.4-11.0)
[2021-03-21 18:14] LABS: CRP 5.23 mg/L (0.0-3.0); Iron 62 ug/dL (65-175)
[2021-03-23 16:09] LABS: Endomysial Antibody IgA Negative (Negative)
[2021-03-24 11:54] LABS: Immunoglobulin A 411 mg/dL (90-386); t-Transglutaminase IgA <2 U/mL (0-3)
== END ==
PROVIDERS: PCP Family Medicine; Referring Provider Internal Medicine Gastroenterology; Visit Provider Internal Medicine Gastroenterology
DX: D50.9 Iron deficiency anemia, unspecified (principal)
CPT/HCPCS: 36415; 82784; 83516; 83540; 85027; 85652; 86140; 86255

== ENCOUNTER → 2021-06-13 16:35 | Outpatient (CLI) | payer OTHER, SELFPAY ==
[2021-06-13 16:41] LABS: Bacteria 0 SEEN /hpf (None Seen); Mucous, Urine 0 SEEN /hpf (<or=2+); Red Blood Cells-Urine 0 SEEN /hpf (0-5); Squamous Epithelial Cells - UA 0 SEEN /hpf (0-5); White Blood Cells 0 SEEN /hpf (0-5)
[2021-06-13 17:48] LABS: Color, Urine Yellow (Yellow); Glucose, Dipstick Normal (Normal); Ketone-Dipstick Negative (Negative); Leukocyte Esterase-Dipstick Negative /ul (Negative); Nitrite-Dipstick Negative (Negative); Occult Blood-Urine Negative /ul (Negative); Protein-Dipstick Negative (Negative); Urine Bilirubin Dipstick Negative (Negative); Urine Clarity Clear (Clear); Urine Urobilinogen Normal (Normal); Urine pH 6.5 (5.0 - 8.0)
[2021-06-13 17:51] LABS: Hematocrit 43.8 % (40-54); Hemoglobin 14.4 g/dL (13.0-16.5); Mean Corp Hgb Conc 32.9 g/dL (32-36); Mean Corpuscular Hgb 27.6 pg (27.0-32.0); Mean Corpuscular Volume 84.1 fL (80-94); Mean Platelet Vol. 9.5 fl (6.2-12.0); Platelet Count 259 K/mm3 (150-450); RBC Distribution Width CV 12.9 % (11.6-14.6); RBC Distribution Width SD 39.7 fl (35.1-43.9); Red Blood Count 5.21 M/mm3 (4.6-6.2)
[2021-06-13 18:11] LABS: Anion Gap 6 (5-15); BUN 7 mg/dL (7-18); BUN/Creat Ratio 7.9 RATIO (10-20); Calcium,Total 8.4 mg/dL (8.5-10.1); Chloride 104 mmol/L (98-107); Creatinine, Serum 0.88 mg/dL (0.70-1.30); EST Glomerular Filtration Rate 107 mL/min (>60); Est Glom Filt Rate - Afr Amer 130 mL/min (>60); Ferritin 54 ng/mL (26-388); Glucose 89 mg/dL (74-106); Iron 64 ug/dL (65-175); Magnesium 2.2 mg/dL (1.6-2.6); Potassium 3.6 mmol/L (3.5-5.1); Sodium Level 141 mmol/L (136-145); Thyroid Stim Hormone (TSH) 2.41 uIU/mL (0.358-3.74)
[2021-06-13 18:15] LABS: Vitamin B12 684 pg/mL (211-911); Vitamin D,25 Hydroxy 27.6 ng/mL
== END ==
PROVIDERS: PCP Family Medicine; Referring Provider Family Medicine; Visit Provider Family Medicine
DX: E53.8 Deficiency of other specified B group vitamins (principal); E55.9 Vitamin D deficiency, unspecified; D64.9 Anemia, unspecified; R55 Syncope and collapse
CPT/HCPCS: 36415; 80048; 81001; 82306; 82607; 82728; 83540; 83735; 84443; 85027

== ENCOUNTER 2021-10-22 14:52 | Emergency (ER) | payer OTHER, SELFPAY ==
[2021-10-22 14:54] VITALS: BP 117/82; PULSE 98; RESP 18; TEMP 36.6; O2SAT 99; BMI 23.0
[2021-10-22 17:35] LABS: Absolute Lymphocyte Count 0.83 X10^3/uL (0.83-4.51); Absolute Neutrophil Count 8.7 X10^3/uL (2.0-7.7); Basophil# 0.03 X10^3/uL; Basophil% 0.3 % (0-1); Hematocrit 48.5 % (40-54); Hemoglobin 16.5 g/dL (13.0-16.5); Lymphocyte # 0.83 X10^3/ul (0.83-4.51); Lymphocyte % 8.3 % (19-41); Mean Corpuscular Hgb 27.9 pg (27.0-32.0); Mean Corpuscular Volume 82.1 fL (80-94); Mean Platelet Vol. 8.9 fl (6.2-12.0); Monocyte# 0.49 X10^3/uL; Monocyte% 4.9 % (0-10); NRBC Flagged by Analyzer 0 % (0-5); Neutrophil # 8.65 X10^3/uL (2.7-7.7); Neutrophil % 85.9 % (47-70); Platelet Count 308 K/mm3 (150-450); RBC Distribution Width CV 12.8 % (11.6-14.6); RBC Distribution Width SD 38.4 fl (35.1-43.9); Red Blood Count 5.91 M/mm3 (4.6-6.2); White Blood Count 10.1 K/mm3 (4.4-11.0)
[2021-10-22 17:49] LABS: Anion Gap 6 (5-15); BUN 9 mg/dL (7-18); BUN/Creat Ratio 9.7 RATIO (10-20); Calcium,Total 9.6 mg/dL (8.5-10.1); Chloride 103 mmol/L (98-107); Creatinine, Serum 0.93 mg/dL (0.70-1.30); EST Glomerular Filtration Rate 101 mL/min (>60); Est Glom Filt Rate - Afr Amer 122 mL/min (>60); Estimated Creatinine Clearance 125.52 ml/min; Glucose 103 mg/dL (74-106); Potassium 3.8 mmol/L (3.5-5.1); Sodium Level 139 mmol/L (136-145)
[2021-10-22 18:38] VITALS: BP 129/81; PULSE 100; RESP 18; O2SAT 96
--- NOTE | 2021-10-22 18:49 | EX.ED.DYSGE1 ---
HPI History of Present Illness Chief Complaint: Abd Pain Informant: patient Onset/Context/Timing Onset: Yesterday Current Severity: Mild Maximum Severity: Moderate Narrative Narrative: Patient presents with abdominal pain. He has a history of Crohn's disease. Around 7 PM last evening he started all pain cramping and constipation-like feeling. He developed nausea and vomiting this morning. He did have a small bowel movement around 8 AM. No fever or chills. Patient has had prior bowel resection in light of this his GI doctor recommended he come in for evaluation. [facility] Medical History Crohn's disease Home Medications prednisone 30 mg PO DAILY 12/17/18 [History Last Taken Unknown] ciprofloxacin HCl 01/24/19 [History Last Taken Unknown] metronidazole [Flagyl] 01/24/19 [History Last Taken Unknown] Allergy/AdvReac Type Severity Reaction Status Date / Time No Known Allergies Allergy Verified 10/22/21 14:58 Surgical History History of bowel resection [place] teeth removed Social History Smoking Status: Never smoker ROS ROS ED Constitutional Constitutional ED: Denies chills or fever(s) Eyes Eyes: Denies change in vision ENT ENT ED: Denies sore throat Cardiovascular Cardiovascular: Denies chest pain Respiratory/Chest Respiratory/Chest: Denies cough or dyspnea Gastrointestinal Gastrointestinal: Reports abdominal pain, nausea and vomiting; Denies diarrhea Genitourinary Genitourinary ED: Denies dysuria Musculoskeletal Musculoskeletal: Denies back pain Integumentary Denies rash Neurologic Neurologic: Denies headache(s) or weakness Allergic/Immunologic Allergic/Immunologic ED: Denies urticaria EXAM Physical Exam Const Vital Signs: 10/22/21 14:54 10/22/21 18:38 Temperature 98 F Temperature Source Temporal Pulse Rate 98 100 Respiratory Rate 18 18 Blood Pressure 117/82 H 129/81 H Blood Pressure Mean 93 97 Pulse Ox 99 96 Oxygen Delivery Method Room Air Room Air Positive well nourished and well developed General Appearance ED: well developed HEENT Reports moist mucous membranes Eyes PERRL and EOMs intact bilaterally Neck supple Chest Wall inspection of chest normal and palpation of chest normal Resp normal respiratory effort and clear to auscultation bilaterally Cardio regular rate and regular rhythm GI Auscultation: hypoactive bowel sounds Palpation: soft and tender RLQ Extremity normal to inspection Neuro oriented x3 Sensorium / Orientation: alert Psych mental status grossly normal Skin no rashes or lesions noted MDM MDM MDM Narrative Medical decision making narrative: Patient given morphine, Zofran, IV fluids. Lab work, urinalysis, CT abdomen pelvis obtained. Lab Data Attestation: I reviewed the patient's lab results. Labs: Laboratory Results - last 24 hr 10/22/21 10/22/21 10/22/21 17:20 17:20 19:35 WBC 10.1 RBC 5.91 Hgb 16.5 Hct 48.5 MCV 82.1 MCH 27.9 MCHC 34.0 RDW Std Deviation 38.4 RDW Coeff of [place] 12.8 Plt Count 308 MPV 8.9 Immature Gran % (Auto) 0.600 Neut % (Auto) 85.9 H Lymph % (Auto) 8.3 L [place] % (Auto) 4.9 Eos % (Auto) 0.0 Baso % (Auto) 0.3 Absolute Neuts (auto) 8.7 H Absolute Lymphs (auto) 0.83 Nucleated RBC % 0 Sodium 139 Potassium 3.8 Chloride 103 Carbon Dioxide 30.0 Anion Gap 6 BUN 9 Creatinine 0.93 Estim Creat Clear Calc 125.52 Est GFR (MDRD) Af Amer 122 Est GFR (MDRD) Non-Af 101 BUN/Creatinine Ratio 9.7 L Glucose 103 Calcium 9.6 Urine Color Yellow Urine Clarity Clear Urine pH 7.0 Ur Specific [place] 1.015 Urine Protein 15 H Urine Glucose (UA) Normal Urine Ketones 150 A* Urine Occult Blood Negative Urine Nitrite Negative Urine Bilirubin Negative Urine Urobilinogen 1 H Ur Leukocyte Esterase Negative Urine RBC 0-5 SEEN Urine WBC 0 SEEN Ur Squamous Epith Cells 0 SEEN Urine Bacteria 0 SEEN Urine Mucus 1+ Radiography Diagnostic Testing: Clinical Impression(s) from Imaging Studies Abdomen/Pelvis CT 10/22/21 20:35 IMPRESSION: (NOT LISTED IN ORDER OF SIGNIFICANCE) Multiple scattered mesenteric, cecal, periappendiceal, and periaortic lymph nodes. This can suggest mesenteric adenitis. Trace free fluid in the pelvis and right lower quadrant. Other findings as above. Treatment and Re-Evaluation Comments:: Test results discussed with patient and spouse at bedside. Lab work unremarkable. CT scan reveals findings consistent with mesenteric adenitis. Supportive care as discussed. He will continue Tylenol at home. Follow-up with Dr. Peterson as needed. Discharge Plan Triage Chief Complaint: Abd Pain ED Provider: Vianey Cruz Dx/Rx/DC Orders Clinical Impression: Mesenteric adenitis Instructions: ED Adenitis, Mesenteric Prescriptions: No Action prednisone 10 MG tablet 30 mg PO DAILY RF: 0 metronidazole [Flagyl] 500 MG tablet RF: 0 ciprofloxacin HCl 500 MG tablet RF: 0 Primary Care Provider: Fausto Ballesteros Referrals: Fausto Ballesteros MD [Primary Care Provider] - Erasmo Peterson MD [NON-STAFF] - 1 Week if not improving Disposition Disposition: Home, Self Care
[2021-10-22] MEDS: 0.9% Normal Saline 1,000 ML 150 ML IV (19:11)
[2021-10-22] MEDS: Morphine 4 MG/ML Syringe IV (19:11)
[2021-10-22] MEDS: Ondansetron 4 MG/2 ML Vial IV (19:12)
[2021-10-22 19:48] LABS: Bacteria 0 SEEN /hpf (None Seen); Squamous Epithelial Cells - UA 0 SEEN /hpf (0-5); White Blood Cells 0 SEEN /hpf (0-5)
[2021-10-22 20:16] LABS: Color, Urine Yellow (Yellow); Glucose, Dipstick Normal (Normal); Leukocyte Esterase-Dipstick Negative /ul (Negative); Nitrite-Dipstick Negative (Negative); Occult Blood-Urine Negative /ul (Negative); Protein-Dipstick 15 mg/dl (Negative); Specific Gravity, Urine 1.015 (1.002-1.030); Urine Bilirubin Dipstick Negative (Negative); Urine Clarity Clear (Clear); Urine Urobilinogen 1 mg/dl (Normal)
[2021-10-22 20:26] LABS: Ketone-Dipstick 150 mg/dl (Negative)
[2021-10-22 20:27] LABS: Mucous, Urine 1+ /hpf (<or=2+); Red Blood Cells-Urine 0-5 SEEN /hpf (0-5)
--- NOTE | 2021-10-22 20:35 | CT_ITS ---
STUDY: CT Abdomen And Pelvis W/ Contrast Injection 10/22/2021 8:49 PM REASON FOR EXAM: Male, 31 years old. ABDOMINAL PAIN abd pain -- IV PO Contrast TECHNIQUE: Transaxial images were obtained with oral contrast, and IV Gastrografin 100mL Isovue-300 intravenous contrast. Individualized dose optimization techniques were used for this CT. COMPARISON: Jan 21 2019 3:37pm . FINDINGS: The visualized lung bases are unremarkable. The visualized portions of the heart are within normal limits. Normal liver. Normal gallbladder and extrahepatic biliary system. Normal spleen. Normal pancreas. Normal bilateral adrenal glands. No acute findings of the right kidney. No acute findings of the left kidney. Normal visualized stomach. Normal small intestine. Stool throughout the colon. There is non-visualization of the appendix. There are no acute findings of the abdominal aorta. Normal inferior vena cava. Subcentimeter mesenteric lymph nodes. Normal urinary bladder. Normal visualized prostate gland. Trace free fluid in the pelvis and right lower quadrant. Multiple scattered mesenteric, cecal, periappendiceal, and periaortic lymph nodes. This can suggest mesenteric adenitis. There is an umbilical hernia containing fat. Normal osseous structures. IMPRESSION: (NOT LISTED IN ORDER OF SIGNIFICANCE) Multiple scattered mesenteric, cecal, periappendiceal, and periaortic lymph nodes. This can suggest mesenteric adenitis. Trace free fluid in the pelvis and right lower quadrant. Other findings as above. Electronically Signed: Eitan Jack MD at 20:51 EST , CT/Abdomen/Pelvis WITH Contrast
[2021-10-22 21:19] VITALS: BP 124/81; PULSE 79; RESP 15; O2SAT 96
== END 2021-10-22 21:45 | disposition home or self-care (01) ==
PROVIDERS: Emergency Provider Emergency Medicine; PCP Family Medicine; Visit Provider Emergency Medicine
DX: I88.0 Nonspecific mesenteric lymphadenitis (principal); K50.90 Crohn's disease, unspecified, without complications; Z79.52 Long term (current) use of systemic steroids; Z79.899 Other long term (current) drug therapy
CPT/HCPCS: 74177; 80048; 81001; 85025; 96361; 96374; 96375; 99283; J7030; Q9967; A4216; J2405

== ENCOUNTER → 2022-08-21 | Outpatient (CLI) | payer OTHER, SELFPAY ==
--- NOTE | 2022-08-21 08:20 | RAD_ITS ---
PROCEDURE: SMALL BOWEL SERIES DATE OF EXAMINATION: 08/21/2022.. INDICATION: Male, 31 years old. History of Crohn''s disease. History of prior bowel resection. PHYSICIAN: Uri Pierson M.D. FLUOROSCOPY TIME (if supplied): (0:23) minutes/seconds. 12 images were submitted. TECHNIQUE: Radiographic and fluoroscopic images were taken of the small intestine following the ingestion of barium. COMPARISON: None. FINDINGS: A preliminary supine KUB was obtained. There is an unremarkable bowel gas pattern. Fecal material is present throughout the colon. Phleboliths are present within the pelvis. The lung bases are unremarkable. The osseous structures are normal. The patient orally ingested approximately 12 ounces of thin barium Normal visualized fundus, body, and antrum of the stomach. Normal duodenal bulb, C-loop, and proximal jejunum. Normal visualized mucosal folds of the jejunum and ileum. There are no demonstrated dilatations, strictures, or masses of the small intestine. There is no mass displacement of the loops of small intestine. There is a normal motor pattern with barium reaching the colon within approximately 30 minutes. Spot films under fluoroscopic observation demonstrated a normal terminal ileum and ileocecal valve. On the delayed images, there appears to be a mucosal irregularity with edematous changes and possible fistulous communication in the rectosigmoid colon. RAD/Small Bowel Series Only IMPRESSION: Unremarkable small bowel follow-through examination. Findings suggestive of inflammatory changes of the rectosigmoid colon with fistulous communications. Electronically Signed: Uri Pierson MD at 10:57 EST ,
== END | disposition home or self-care (01) ==
LOC: RAD 08:14
PROVIDERS: PCP Family Medicine; Referring Provider Internal Medicine Gastroenterology; Visit Provider Internal Medicine Gastroenterology
DX: K50.90 Crohn's disease, unspecified, without complications (principal)
CPT/HCPCS: 74250

== ENCOUNTER → 2022-09-20 | Outpatient (CLI) | payer BC, SELFPAY ==
[2022-09-20 10:12] LABS: Hematocrit 45.1 % (40-54); Hemoglobin 14.8 g/dL (13.0-16.5); Mean Corp Hgb Conc 32.8 g/dL (32-36); Mean Corpuscular Hgb 27.4 pg (27.0-32.0); Mean Corpuscular Volume 83.4 fL (80-94); Mean Platelet Vol. 9.4 fl (6.2-12.0); Platelet Count 282 K/mm3 (150-450); RBC Distribution Width CV 13.5 % (11.6-14.6); RBC Distribution Width SD 41.2 fl (35.1-43.9); Red Blood Count 5.41 M/mm3 (4.6-6.2); White Blood Count 4.8 K/mm3 (4.4-11.0)
[2022-09-20 10:35] LABS: Vitamin B12 634 pg/mL (211-911); Vitamin D,25 Hydroxy 27.1 ng/mL
[2022-09-20 10:47] LABS: Ferritin 60 ng/mL (26-388); Iron 46 ug/dL (65-175)
== END | disposition home or self-care (01) ==
LOC: MTLAB 08:38
PROVIDERS: PCP Family Medicine; Referring Provider Family Medicine; Visit Provider Family Medicine
DX: K50.90 Crohn's disease, unspecified, without complications (principal)
CPT/HCPCS: 36415; 82306; 82607; 82728; 83540; 85027

== ENCOUNTER → 2022-10-24 | Outpatient (CLI) | payer BC, SELFPAY ==
--- NOTE | 2022-10-24 12:22 | MRI_ITS ---
STUDY: MRI ABDOMEN AND PELVIS WITH AND WITHOUT CONTRAST REASON FOR EXAM: Male, 32 years old. CROHN''S, FISTULA -- ENTEROGRAPHY TECHNIQUE: Standardized fat and water weighted pulse sequences were obtained in all 3 orthogonal planes post contrast administration.IV Yes was administered for the contrast portion of the examination. COMPARISON: CT of abdomen and pelvis dated October 22, 2021. FINDINGS: Imaging starts below the hemidiaphragms with the [id number] cutting off the dome of the liver and portions of the upper quadrant structures. The visualized aspects of the liver are normal without intrahepatic biliary duct dilatation or masses. Normal gallbladder and extrahepatic biliary system. Normal spleen. Normal pancreas. Normal bilateral adrenal glands. Normal right kidney. Normal left kidney. Normal visualized stomach. Normal small intestine. Normal colon. There is no mucosal thickening of the bowel loops. There is no abnormal areas of stricturing or focal dilatation or abnormal adhesions connecting the bowel loops. No visualized skip lesions on the current study. There is no demonstrated bowel obstruction. No colonic diverticula are present. Redemonstration of subcentimeter central abdominal mesentery lymphadenopathy is likely due to chronic inflammation or reactivity. No malignant process is present. There is no abnormal enhancement of the solid organs or bowel loops. There is non-visualization of the appendix. No free fluid is present in the abdomen or pelvis. Normal abdominal aorta. Normal inferior vena cava. Normal retroperitoneum. Normal urinary bladder. Normal abdominal wall. Normal osseous structures. MRI/MRI Abd WITH and W/O Contrast IMPRESSION: 1. Normal visualized stomach. Normal small intestine. Normal colon. There is no mucosal thickening of the bowel loops. 2. There is no abnormal areas of stricturing or focal dilatation or abnormal adhesions connecting the bowel loops. No visualized skip lesions on the current study. 3. There is no demonstrated bowel obstruction. No colonic diverticula are present. 4. Redemonstration of subcentimeter central abdominal mesentery lymphadenopathy is likely due to chronic inflammation or reactivity. Electronically Signed: Sekou Fontenot MD at 10:34 EST ,
[2022-10-24 12:53] VITALS: BP 121/81; PULSE 88; RESP 18; TEMP 36.3; O2SAT 98; BMI 25.7
[2022-10-24] MEDS: 0.9% Saline Lock 10 ML Syringe IV (14:20)
[2022-10-24] MEDS: Glucagon 1 MG/ML Syringe IV (14:20)
[2022-10-24 14:33] VITALS: BP 126/81; PULSE 83; RESP 18; O2SAT 98
== END | disposition home or self-care (01) ==
LOC: MRI 12:17
PROVIDERS: PCP Family Medicine; Referring Provider Internal Medicine Gastroenterology; Visit Provider Internal Medicine Gastroenterology
DX: K50.80 Crohn's disease of both small and large intestine without complications (principal); K60.3 Anal fistula
CPT/HCPCS: 74183; 96374; A9575; J1610

== ENCOUNTER → 2023-03-19 | Outpatient (CLI) | payer BC, SELFPAY ==
[2023-03-19 17:56] LABS: Hematocrit 44.7 % (40-54); Hemoglobin 13.8 g/dL (13.0-16.5); Mean Corp Hgb Conc 30.9 g/dL (32-36); Mean Corpuscular Volume 84.2 fL (80-94); Mean Platelet Vol. 9.5 fl (6.2-12.0); Platelet Count 326 K/mm3 (150-450); RBC Distribution Width CV 13.4 % (11.6-14.6); RBC Distribution Width SD 41.6 fl (35.1-43.9); Red Blood Count 5.31 M/mm3 (4.6-6.2); White Blood Count 6.1 K/mm3 (4.4-11.0)
[2023-03-19 18:16] LABS: Erythrocyte Sedimentation Rate 4 mm/hr (0-20)
[2023-03-19 18:30] LABS: ALB/GLOB Ratio 0.9 RATIO (0.9-2.4); AST(SGOT) 17 U/L (15-37); Alanine Aminotransfer ALT/SGPT 29 U/L (16-61); Albumin, Serum 3.4 g/dL (3.2-5.0); Alkaline Phosphatase 81 U/L (45-117); Anion Gap 5 (5-15); BUN 9 mg/dL (7-18); BUN/Creat Ratio 9.5 RATIO (10-20); CRP 5.73 mg/L (0.0-3.0); Calcium,Total 8.7 mg/dL (8.5-10.1); Chloride 106 mmol/L (98-107); Creatinine, Serum 0.95 mg/dL (0.70-1.30); EST Glomerular Filtration Rate 98 mL/min (>60); Est Glom Filt Rate - Afr Amer 118 mL/min (>60); Globulin 3.6 g/dL (2.2-4.2); Glucose 86 mg/dL (74-106); Iron 52 ug/dL (65-175); Potassium 3.8 mmol/L (3.5-5.1); Sodium Level 140 mmol/L (136-145)
== END | disposition home or self-care (01) ==
PROVIDERS: PCP Family Medicine; Referring Provider Internal Medicine Gastroenterology; Visit Provider Internal Medicine Gastroenterology
DX: K50.00 Crohn's disease of small intestine without complications (principal); D64.9 Anemia, unspecified
CPT/HCPCS: 36415; 80053; 83540; 85027; 85652; 86140; 86900; 86901